=== PATIENT | female | born 1950 | race African-American/Black ===

== ENCOUNTER 2017-09-13 07:40 | Emergency (ER) | payer MEDICARE, OTHER ==
--- NOTE | 2017-09-13 08:18 | RAD ---
CHEST 1 VIEW: HISTORY: Chest pain. COMPARISON: 02/03/17. FINDINGS: Cardiac silhouette is magnified and enlarged. Pulmonary vasculature is upper limits of normal. Medi astinum is midline. Lungs remain hyperinflated with scarring at the bases. There is no lobar consol idation or evidence of pneumothorax. satellite project site monitor leads overlie the chest. IMPRESSION: 1. Chronic obstructive pulmonary disease. Cardiomegaly. 2. Chronic-type findings are stable. POS: [facility]
[2017-09-13 08:32] LABS: #Basophils 0.1 thou/uL (0.0-0.2); #Lymphocytes 1.5 thou/uL (1.20-3.40); #Monocytes 0.5 thou/uL (0.11-0.59); #Neutrophils 4.3 thou/uL (1.40-6.50); %Basophils 1.2 % (0.0-1.0); %Eosinophils 0.3 % (0.0-10.0); %Lymphocytes 22.8 % (21.0-51.0); %Neutrophils 67.7 % (42.0-75.0); Hemoglobin 12.7 g/dL (12.0-16.0); Mean Corpuscular HGB CONC 32.8 g/dL (32.0-36.0); Mean Corpuscular Hemoglobin 34.5 pg (27.0-31.0); Mean Platelet Volume 9.9 fL (7.4-10.4); Platelet Count 147 thou/uL (130-400); RBC Distribution Width 14.9 % (11.5-14.5); Red Blood Cell (RBC) Count 3.68 mill/uL (4.20-5.40); White Blood Cell (WBC) Count 6.4 thou/uL (4.8-10.8)
[2017-09-13 08:49] LABS: ALT (SGPT) 33 U/L (8-55); AST (SGOT) 32 U/L (5-34); Albumin 3.2 g/dL (3.4-4.8); Alkaline Phosphatase 97 U/L (40-150); Anion Gap 19 mmol/L (10-20); BUN (Urea Nitrogen) 21 mg/dL (9.8-20.1); Bilirubin, Total 1.5 mg/dL (0.2-1.2); CK (CPK) 402 U/L (29-168); Calc. Creatinine Clearance 0 mL/min (70-130); Carbon Dioxide 27 mmol/L (23-31); Chloride 89 mmol/L (98-107); Estimated GFR-MDRD 43; Globulin 3.2 g/dL (2.4-3.5); Glucose 97 mg/dL (80-115); Potassium 3.1 mmol/L (3.5-5.1); Protein, Total 6.4 g/dL (6.0-8.3); Sodium 132 mmol/L (136-145)
[2017-09-13 08:56] LABS: Troponin I 0.015 ng/mL (< 0.028)
[2017-09-13 08:57] LABS: CKMB 7.7 ng/mL (0-6.6)
[2017-09-13] MEDS ORDERED: Fentanyl 100 MCG/2 ML VIAL ONE (09:16)
[2017-09-13] MEDS ORDERED: PROPOFOL 0 ML ONE (09:38)
[2017-09-13] MEDS ORDERED: Digoxin 0.5 MG/2 ML AMP ONE (11:35)
--- NOTE | 2017-10-09 18:58 | EKG ---
Test Reason : Blood Pressure : / mmHG Vent. Rate : 086 BPM Atrial Rate : 090 BPM P-R Int : 000 ms QRS Dur : 086 ms QT Int : 310 ms P-R-T Axes : 000 056 148 degrees QTc Int : 370 ms Atrial fibrillation Low voltage QRS Anterolateral infarct , age undetermined Abnormal ECG Confirmed by YANELIS ORTIZ, BELLA Farrell ([id number]), state editor PATRICK DURON ([id number]) on 10/09/2017 6:58:22 PM Referred By: Confirmed By:BELLA HILARIO MD
== END 2017-09-13 11:50 | disposition home or self-care (01) ==
LOC: ERS 07:40
DX: I48.91 Unspecified atrial fibrillation (principal); J44.9 Chronic obstructive pulmonary disease, unspecified; I11.0 Hypertensive heart disease with heart failure; I50.9 Heart failure, unspecified; I49.9 Cardiac arrhythmia, unspecified; Z86.73 Personal history of transient ischemic attack (TIA), and cerebral infarction without residual deficits; Z87.891 Personal history of nicotine dependence; Z79.899 Other long term (current) drug therapy
CPT/HCPCS: 36415; 71045; 80053; 82553; 84484; 85025; 93005; 96374; 99152; 99153; J1160; J2704; J3010